=== PATIENT | female | born 1990 | race Caucasian/White ===

== ENCOUNTER 2022-04-25 10:08 | Emergency (ER) | payer OTHER ==
[~2022-04-25] VITALS: Ht 158.7 cm; Wt 113.4 kg
[~2022-04-25 10:08] MED LIST: AMOXICILLIN500 M2 PO; ASPIRIN CHEWABL81 MG PO; EFFEXOR XR37.5 M1 PO; K-TAB20 MEQ PO; LAMICTAL100 MG PO; NEURONTIN300 MG PO; PROTONIX20 MG PO; TOPAMAX15 M1 PO; XANAX0.25 MG PO
[2022-04-25 10:28] VITALS: BP 102/81
[2022-04-25] MEDS ORDERED: SEPTDS PO ×2 (11:14→13:40)
[2022-04-25] MEDS ORDERED: DIFLUCAN150 MG PO ×2 (11:30→13:40)
== END 2022-04-25 11:36 | disposition home or self-care (01) ==
LOC: ED 10:08
DX: N61.0 Mastitis without abscess (principal); F17.200 Nicotine dependence, unspecified, uncomplicated; Z79.2 Long term (current) use of antibiotics; Z79.82 Long term (current) use of aspirin; Z79.899 Other long term (current) drug therapy

== ENCOUNTER 2022-09-13 15:04 | Emergency (ER) | payer OTHER ==
[~2022-09-13] VITALS: Wt 113.4 kg
[~2022-09-13 15:04] MED LIST changes: +DIFLUCAN150 MG PO; +SEPTDS PO
[2022-09-13 15:18] VITALS: BP 132/74
[2022-09-13 16:05] LABS: BILIRUBIN Negative (Negative); BLOOD Negative (Negative); CLARITY Clear (Clear); COLOR Yellow (Yellow); GLUCOSE Negative (Negative); KETONE Negative (Negative); LEUKO ESTERASE Trace (Negative); NITRITE Negative (Negative); UROBILINOGEN 0.2 E.U./dl (0.0-1.0)
[2022-09-13 16:13] LABS: BACTERIA 2+
[2022-09-13 16:14] LABS: EPITHELIAL CELLS 16-20
[2022-09-13 16:17] LABS: URINE AMPHETAMINES Negative (1000ng/ml); URINE BARBITURATES Negative (200ng/ml); URINE BENZODIAZEPINES Negative (200ng/ml); URINE CANNABINOIDS (THC) Positive (50ng/ml); URINE COCAINE Negative (300ng/ml); URINE METHADONE Negative (300ng/ml); URINE OPIATES Negative (300ng/ml); URINE PHENCYCLIDINE Negative (25ng/ml)
[2022-09-13 16:21] LABS: BASO # 0.1 10*3/uL (0.0-0.1); BASO % 0.7 % (0.0-1.0); EOS # 0.2 10*3/uL (0.0-0.4); EOS % 1.7 % (1.0-4.0); HEMATOCRIT 49.2 % (37.0-47.0); LYMPH # 2.2 10*3/uL (1.3-4.4); LYMPH % 23.1 % (27.0-41.0); MEAN CORPUSCULAR HGB 25.2 pg (27.0-31.0); MEAN CORPUSCULAR HGB CONC 31.9 g/dl (33.0-37.0); MEAN PLATELET VOLUME 9.4 fl (9.6-12.3); MONO # 0.5 10*3/uL (0.1-1.0); MONO % 5.7 % (3.0-9.0); NEUT # 6.4 10*3/uL (2.3-7.9); NEUT % 68.4 % (47.0-73.0); PLATELET COUNT AUTOMATED 389 10*3/uL (130-400); RED BLOOD COUNT 6.23 10*6/uL (4.10-5.10); RED CELL DISTRI WIDTH 14.4 % (0-14.5); WHITE BLOOD COUNT 9.4 10*3/uL (4.8-10.8)
[2022-09-13 16:42] LABS: ALKALINE PHOSPHATASE 93 U/L (46-116); BUN 7 mg/dl (9-23); CHLORIDE 109 mmol/L (98-107); CREATININE 0.76 mg/dL (0.55-1.02); POTASSIUM 3.5 mmol/L (3.4-5.1); SGPT/ALT 16 U/L (10-49); SODIUM 139 mmol/L (136-145); TOTAL PROTEIN 7.9 gm/dL (6.0-8.0)
[2022-09-13 16:43] LABS: ETHYL ALCOHOL < 3.0 mg/dl (<3)
[2022-09-13] MEDS ORDERED: 'XANAX0.5 MG PO (17:10)
== END 2022-09-13 17:23 | disposition home or self-care (01) ==
LOC: ED 15:04
PROVIDERS: Physician Assistant
DX: F41.0 Panic disorder [episodic paroxysmal anxiety] (principal); F19.90 Other psychoactive substance use, unspecified, uncomplicated

== ENCOUNTER 2022-10-22 17:20 | Emergency (ER) | payer OTHER ==
[~2022-10-22] VITALS: Wt 108.9 kg
[~2022-10-22 17:20] MED LIST changes: +'XANAX0.5 MG PO
[2022-10-22 17:29] VITALS: BP 140/85
[2022-10-22 17:43] LABS: BILIRUBIN Negative (Negative); BLOOD Negative (Negative); CLARITY Cloudy (Clear); COLOR Yellow (Yellow); GLUCOSE Negative (Negative); KETONE 1+ (Negative); LEUKO ESTERASE 1+ (Negative); NITRITE Negative (Negative); PH 5.5 (4.5-8.0)
[2022-10-22 17:53] LABS: BACTERIA 2+; MUCOUS 1+
[2022-10-22 17:59] LABS: BASO # 0.1 10*3/uL (0.0-0.1); BASO % 0.8 % (0.0-1.0); EOS # 0.2 10*3/uL (0.0-0.4); EOS % 1.6 % (1.0-4.0); LYMPH # 3.8 10*3/uL (1.3-4.4); LYMPH % 33.8 % (27.0-41.0); MEAN CELL VOLUME 78.5 fl (81.0-99.0); MEAN CORPUSCULAR HGB 25.2 pg (27.0-31.0); MEAN CORPUSCULAR HGB CONC 32.1 g/dl (33.0-37.0); MEAN PLATELET VOLUME 9.3 fl (9.6-12.3); MONO # 0.6 10*3/uL (0.1-1.0); MONO % 5.2 % (3.0-9.0); NEUT # 6.6 10*3/uL (2.3-7.9); NEUT % 58.2 % (47.0-73.0); PLATELET COUNT AUTOMATED 448 10*3/uL (130-400); RED BLOOD COUNT 5.99 10*6/uL (4.10-5.10); WHITE BLOOD COUNT 11.4 10*3/uL (4.8-10.8)
[2022-10-22 18:15] LABS: ALKALINE PHOSPHATASE 90 U/L (46-116); BUN 9 mg/dl (9-23); CHLORIDE 103 mmol/L (98-107); SGPT/ALT 20 U/L (10-49)
[2022-10-22] MEDS ORDERED: SEPTDS PO (18:41)
[2022-10-22] MEDS ORDERED: PYRIDIUM200 M1 PO (18:41)
[2022-10-24] MEDS ORDERED: CIPRO500 MG PO (09:51)
== END 2022-10-22 18:50 | disposition home or self-care (01) ==
LOC: ED 17:20
PROVIDERS: Physician Assistant
DX: N39.0 Urinary tract infection, site not specified (principal)

== ENCOUNTER 2022-12-16 20:12 | Emergency (ER) | payer OTHER ==
[~2022-12-16] VITALS: Ht 157.4 cm; Wt 111.1 kg
[~2022-12-16 20:12] MED LIST changes: +CIPRO500 MG PO; +PYRIDIUM200 M1 PO
[2022-12-16 20:21] VITALS: BP 140/74
[2022-12-16] MEDS ORDERED: AMOXICILLIN500 M2 PO (21:13)
== END 2022-12-16 21:34 | disposition home or self-care (01) ==
LOC: ED 20:12
DX: J02.9 Acute pharyngitis, unspecified (principal); Z79.899 Other long term (current) drug therapy

== ENCOUNTER 2023-01-13 21:11 | Emergency (ER) | payer OTHER ==
[~2023-01-13] VITALS: Ht 157.4 cm; Wt 117.9 kg
[2023-01-13 21:11] VITALS: BP 134/60
[2023-01-13] MEDS ORDERED: PENICILLIN VK500 MG PO (21:40)
== END 2023-01-13 22:29 | disposition home or self-care (01) ==
LOC: ED 21:11
DX: K02.9 Dental caries, unspecified (principal); Z79.899 Other long term (current) drug therapy

== ENCOUNTER 2023-12-16 21:16 | Emergency (ER) | payer OTHER ==
[~2023-12-16] VITALS: Ht 157.4 cm; Wt 135.2 kg
[2023-12-16 21:16] VITALS: BP 150/82
[~2023-12-16 21:16] MED LIST changes: +PENICILLIN VK500 MG PO
[2023-12-16] MEDS ORDERED: Albuterol Sulf/Ipratropium 3 ML VIAL NEB ONE (21:25)
[2023-12-16] MEDS ORDERED: methylPREDNISolone sod succ 125 MG VIAL IV ONE (21:30)
[2023-12-16] MEDS ORDERED: PROVENTIL HFA6.7 GM INH (21:31)
[2023-12-16] MEDS ORDERED: ZYPREXA2.5 MG PO (21:32)
[2023-12-16] MEDS ORDERED: VENTOLIN 02.5 MG/3 M INH (22:11)
[2023-12-16] MEDS ORDERED: PREDNISONE10 MG PO (22:11)
[2023-12-16] MEDS ORDERED: ALBUTEROL 8 GM INHALER INH ONE (22:15)
== END 2023-12-16 22:26 | disposition home or self-care (01) ==
LOC: ED 21:16
DX: J45.901 Unspecified asthma with (acute) exacerbation (principal); Z79.899 Other long term (current) drug therapy

== ENCOUNTER 2024-01-25 20:47 | Emergency (ER) | payer OTHER ==
[~2024-01-25] VITALS: Ht 157.4 cm; Wt 131.5 kg
[~2024-01-25 20:47] MED LIST changes: +PREDNISONE10 MG PO; +PROVENTIL HFA6.7 GM INH; +VENTOLIN 02.5 MG/3 M INH; +ZYPREXA2.5 MG PO
[2024-01-25 20:55] VITALS: BP 139/82
[2024-01-25] MEDS ORDERED: ALBUTEROL2.5 MG/0.5 INH (20:57)
[2024-01-25] MEDS ORDERED: Albuterol Sulfate 2.5 MG/3 ML VIAL NEB ONE (21:20)
[2024-01-25] MEDS ORDERED: Albuterol Sulf/Ipratropium 3 ML VIAL NEB ONE (21:20)
[2024-01-25] MEDS ORDERED: predniSONE 20 MG TAB PO ONE (21:20)
[2024-01-25 21:37] LABS: BASO # 0.1 10*3/uL (0.0-0.1); BASO % 0.6 % (0.0-1.0); EOS # 0.5 10*3/uL (0.0-0.4); EOS % 4.1 % (1.0-4.0); HEMATOCRIT 42.4 % (37.0-47.0); LYMPH % 23.3 % (27.0-41.0); MEAN CELL VOLUME 79.5 fl (81.0-99.0); MEAN CORPUSCULAR HGB 23.6 pg (27.0-31.0); MEAN CORPUSCULAR HGB CONC 29.7 g/dl (33.0-37.0); MEAN PLATELET VOLUME 9.3 fl (9.6-12.3); MONO # 0.8 10*3/uL (0.1-1.0); MONO % 6.1 % (3.0-9.0); NEUT # 8.4 10*3/uL (2.3-7.9); NEUT % 65.6 % (47.0-73.0); PLATELET COUNT AUTOMATED 478 10*3/uL (130-400); RED BLOOD COUNT 5.33 10*6/uL (4.10-5.10); RED CELL DISTRI WIDTH 15.7 % (0-14.5); WHITE BLOOD COUNT 12.8 10*3/uL (4.8-10.8)
[2024-01-25 22:02] LABS: ALKALINE PHOSPHATASE 96 U/L (46-116); BUN 5 mg/dl (9-23); CHLORIDE 111 mmol/L (98-107); POTASSIUM 3.3 mmol/L (3.4-5.1); SGPT/ALT 16 U/L (5-49); TOTAL PROTEIN 7.3 gm/dL (6.0-8.0)
[2024-01-26] MEDS ORDERED: PREDNISONE10 M1 PO (00:17)
== END 2024-01-26 00:25 | disposition home or self-care (01) ==
LOC: ED 20:47
PROVIDERS: Emergency Medicine
DX: J45.909 Unspecified asthma, uncomplicated (principal); F41.9 Anxiety disorder, unspecified; E87.6 Hypokalemia; Z86.718 Personal history of other venous thrombosis and embolism; F31.9 Bipolar disorder, unspecified; D64.9 Anemia, unspecified; Z90.49 Acquired absence of other specified parts of digestive tract

== ENCOUNTER 2024-02-12 03:35 | Emergency (ER) | payer OTHER ==
[~2024-02-12] VITALS: Ht 157.4 cm; Wt 136.1 kg
[~2024-02-12 03:35] MED LIST changes: +ALBUTEROL2.5 MG/0.5 INH; +PREDNISONE10 M1 PO
[2024-02-12] MEDS ORDERED: methylPREDNISolone sod succ 125 MG VIAL IV ONE (03:45)
[2024-02-12] MEDS ORDERED: Albuterol Sulf/Ipratropium 3 ML VIAL NEB ONE ×2 (03:45)
[2024-02-12 05:53] VITALS: BP 144/45
[2024-02-12] MEDS ORDERED: PREDNISONE20 M1 PO (06:04)
== END 2024-02-12 06:25 | disposition home or self-care (01) ==
LOC: ED 03:35
DX: J45.901 Unspecified asthma with (acute) exacerbation (principal); F31.9 Bipolar disorder, unspecified; F41.9 Anxiety disorder, unspecified; D64.9 Anemia, unspecified; Z86.718 Personal history of other venous thrombosis and embolism; Z90.49 Acquired absence of other specified parts of digestive tract

== ENCOUNTER 2024-03-30 20:55 | Emergency (ER) | payer OTHER ==
[~2024-03-30] VITALS: Ht 157.4 cm; Wt 145.1 kg
[~2024-03-30 20:55] MED LIST changes: +PREDNISONE20 M1 PO
[2024-03-30 21:33] VITALS: BP 144/93
[2024-03-30 22:09] LABS: BILIRUBIN Negative (Negative); BLOOD Negative (Negative); CLARITY Clear (Clear); COLOR Yellow (Yellow); GLUCOSE Negative (Negative); KETONE Negative (Negative); LEUKO ESTERASE 1+ (Negative); NITRITE Negative (Negative); PH 6.5 (4.5-8.0); SPECIFIC GRAVITY <= 1.005 (1.001-1.030); UROBILINOGEN 0.2 E.U./dl (0.0-1.0)
[2024-03-30 22:17] LABS: EPITHELIAL CELLS 16-20
[2024-03-30 22:32] LABS: BASO # 0.1 10*3/uL (0.0-0.1); BASO % 0.7 % (0.0-1.0); EOS # 0.8 10*3/uL (0.0-0.4); EOS % 7.2 % (1.0-4.0); HEMATOCRIT 40.7 % (37.0-47.0); LYMPH # 3.1 10*3/uL (1.3-4.4); LYMPH % 28.5 % (27.0-41.0); MEAN CELL VOLUME 78.9 fl (81.0-99.0); MEAN CORPUSCULAR HGB 23.6 pg (27.0-31.0); MEAN PLATELET VOLUME 9.8 fl (9.6-12.3); MONO # 0.8 10*3/uL (0.1-1.0); MONO % 7.1 % (3.0-9.0); NEUT # 6.1 10*3/uL (2.3-7.9); NEUT % 56.1 % (47.0-73.0); PLATELET COUNT AUTOMATED 318 10*3/uL (130-400); RED BLOOD COUNT 5.16 10*6/uL (4.10-5.10); WHITE BLOOD COUNT 10.9 10*3/uL (4.8-10.8)
[2024-03-30 23:22] LABS: BUN 6 mg/dl (9-23); CHLORIDE 112 mmol/L (98-107); LIPASE 42 U/L (12-53); POTASSIUM 3.3 mmol/L (3.4-5.1)
[2024-03-30] MEDS ORDERED: POTASSIUM CHLORIDE 20 MEQ TAB PO ONE (23:40)
[2024-03-31] MEDS ORDERED: Acetaminophen/Hydrocodone 5 MG/325 MG TABLET PO ONE (00:20)
[2024-03-31 06:37] LABS: BURR CELLS FEW; MICROCYTOSIS SLIGHT; PLATELET SUFFICIENCY NORMAL (NORMAL); POLYCHROMASIA SLIGHT; TOTAL CELLS COUNTED 100 #CELLS
== END 2024-03-31 00:32 | disposition home or self-care (01) ==
LOC: ED 20:55
PROVIDERS: Nurse Practitioner Family
DX: R10.32 Left lower quadrant pain (principal); R19.7 Diarrhea, unspecified; F41.9 Anxiety disorder, unspecified; J45.909 Unspecified asthma, uncomplicated; E87.6 Hypokalemia; Z86.718 Personal history of other venous thrombosis and embolism; F31.9 Bipolar disorder, unspecified; D64.9 Anemia, unspecified; Z90.49 Acquired absence of other specified parts of digestive tract

== ENCOUNTER → 2024-10-09 | Outpatient (CLI) | payer OTHER ==
[2024-10-09 11:53] LABS: BASO # 0.1 10*3/uL (0.0-0.1); BASO % 0.7 % (0.0-1.0); EOS # 0.9 10*3/uL (0.0-0.4); EOS % 7.9 % (1.0-4.0); HEMATOCRIT 44.5 % (37.0-47.0); MEAN CELL VOLUME 77.3 fl (81.0-99.0); MEAN CORPUSCULAR HGB 23.4 pg (27.0-31.0); MEAN CORPUSCULAR HGB CONC 30.3 g/dl (33.0-37.0); MEAN PLATELET VOLUME 9.1 fl (9.6-12.3); MONO # 0.5 10*3/uL (0.1-1.0); MONO % 4.9 % (3.0-9.0); NEUT # 6.6 10*3/uL (2.3-7.9); NEUT % 61.2 % (47.0-73.0); PLATELET COUNT AUTOMATED 504 10*3/uL (130-400); RED BLOOD COUNT 5.76 10*6/uL (4.10-5.10); RED CELL DISTRI WIDTH 16.4 % (0-14.5); WHITE BLOOD COUNT 10.7 10*3/uL (4.8-10.8)
[2024-10-09 12:25] LABS: ALKALINE PHOSPHATASE 125 U/L (46-116); BUN 12 mg/dl (9-23); CHLORIDE 110 mmol/L (98-107); CHOLESTEROL 195 mg/dL (<200); LDL CHOLESTEROL 105 mg/dL (9-159); POTASSIUM 3.7 mmol/L (3.4-5.1); SGPT/ALT 29 U/L (5-49); TOTAL PROTEIN 7.8 gm/dL (6.0-8.0); TRIGLYCERIDES 261 mg/dl (<150)
== END | disposition home or self-care (01) ==
LOC: LAB 11:31
PROVIDERS: ATTEND Nurse Practitioner Family
DX: Z11.4 Encounter for screening for human immunodeficiency virus [HIV] (principal); E11.69 Type 2 diabetes mellitus with other specified complication